=== PATIENT | male | born 1955 | race African-American/Black ===

== ENCOUNTER 2016-05-04 21:53 | Emergency (ER) | payer OTHER ==
[~2016-05-04] VITALS: Ht 170.2 cm; Wt 81.6 kg
[~2016-05-04 21:53] MED LIST: AMLO10TA4 PO; BENZ1TAB7 PO; CLON0.1T PO; ENOX80DI SQ; HYDR-3326 PO; METF500T4 PO; PARO20TA51 PO; QUET25TA PO; TRAM50TA2 PO; WARF5TAB77 PO
[2016-05-04 23:08] LABS: ANION GAP 9 (5-14); CALCIUM, SERUM 9.6 mg/dL (8.5-10.1); CARBON DIOXIDE 34 mmol/L (21-32); CHLORIDE 97 mmol/L (98-107); GFR 92 mL/min (>60); GLUCOSE 293 mg/dL (74-106); POTASSIUM 4.7 mmol/L (3.5-5.1); SODIUM SERUM 135 mmol/L (136-145); UREA NITROGEN, BLOOD 12 mg/dL (7-18)
[2016-05-04 23:08] LABS: CANNABINOID, URINE NEGATIVE (NEGATIVE); PHENCYCLIDINE SCREEN,URINE NEGATIVE (NEGATIVE)
[2016-05-04 23:09] LABS: BASOPHILS # (AUTO) 0.1 /CMM (0.0-0.2); BASOPHILS % (AUTO) 0.5 % (0.0-2.0); DIFF TOTAL % 100 %; EOSINOPHILS # (AUTO) 0.2 /CMM (0.0-0.7); EOSINOPHILS % (AUTO) 1.6 % (0.0-6.0); HEMATOCRIT 42 % (39-51); HEMOGLOBIN 13.4 g/dL (13.5-17.5); LYMPHOCYTES # (AUTO) 3.5 /CMM (0.8-4.8); LYMPHOCYTES % (AUTO) 27.8 % (20.0-44.0); MEAN CORPUSCULAR HEMOGLOBIN 27 PG (26.0-33.0); MEAN CORPUSCULAR HGB CONC 32 g/dl (31.0-36.0); MEAN CORPUSCULAR VOLUME 84 fL (80-96); MONOCYTES # (AUTO) 0.7 /CMM (0.1-1.30); MONOCYTES % (AUTO) 5.6 % (2.0-12.0); NEUTROPHILS # (AUTO) 8.1 /CMM (1.8-8.9); NEUTROPHILS % (AUTO) 64.5 % (43.0-81.0); PLATELET COUNT (AUTO) 275 /CMM (150-450); RED BLOOD CELL COUNT(AUTO) 4.97 MIL/uL (4.5-6.0); WHITE BLOOD COUNT (AUTO) 12.5 K/uL (4.3-11.0)
[2016-05-04 23:16] LABS: ACETAMINOPHEN 0 ug/ml (10-30); ALANINE AMINOTRANSFERASE 22 U/L (12-78); ALBUMIN 4.3 g/dL (3.4-5.0); ASPARTATE AMINOTRANSFERASE 14 U/L (15-37); BILIRUBIN,DIRECT 0.1 mg/dL (0.0-0.2); BILIRUBIN,TOTAL 0.3 mg/dL (0.2-1.0); INDIRECT BILIRUBIN 0.2 mg/dL (0.0-1.1); SALICYLATE 3.8 mg/dL (2.8-20.0); TOTAL PROTEIN, SERUM 8.2 g/dL (6.4-8.2)
[2016-05-05 01:02] VITALS: BP 141/80
== END 2016-05-05 01:04 | disposition home or self-care (01) ==
LOC: ER 21:57
DX: F32.9 Major depressive disorder, single episode, unspecified (principal); F20.9 Schizophrenia, unspecified; G89.29 Other chronic pain; R44.0 Auditory hallucinations; I10 Essential (primary) hypertension; E11.9 Type 2 diabetes mellitus without complications; F31.9 Bipolar disorder, unspecified; I82.409 Acute embolism and thrombosis of unspecified deep veins of unspecified lower extremity; F17.200 Nicotine dependence, unspecified, uncomplicated; Z88.8 Allergy status to other drugs, medicaments and biological substances; Z79.01 Long term (current) use of anticoagulants
CPT/HCPCS: 36415; 80048; 80076; 80305; 85025; 99284; A4606; G0480; G0481; G0482; Z7610; G6038-TC; G6039-TC; G6040-TC

== ENCOUNTER 2016-05-13 19:20 | Emergency (ER) | payer OTHER ==
[~2016-05-13] VITALS: Ht 170.2 cm; Wt 83.9 kg
[2016-05-13 21:28] LABS: BASOPHILS # (AUTO) 0.1 /CMM (0.0-0.2); BASOPHILS % (AUTO) 0.7 % (0.0-2.0); DIFF TOTAL % 100 %; EOSINOPHILS # (AUTO) 0.3 /CMM (0.0-0.7); EOSINOPHILS % (AUTO) 2.9 % (0.0-6.0); HEMATOCRIT 38 % (39-51); HEMOGLOBIN 12.5 g/dL (13.5-17.5); LYMPHOCYTES # (AUTO) 3.7 /CMM (0.8-4.8); MEAN CORPUSCULAR HEMOGLOBIN 27 PG (26.0-33.0); MEAN CORPUSCULAR HGB CONC 33 g/dl (31.0-36.0); MEAN CORPUSCULAR VOLUME 82 fL (80-96); MONOCYTES # (AUTO) 0.6 /CMM (0.1-1.30); MONOCYTES % (AUTO) 6.5 % (2.0-12.0); NEUTROPHILS # (AUTO) 4.4 /CMM (1.8-8.9); NEUTROPHILS % (AUTO) 49.9 % (43.0-81.0); PLATELET COUNT (AUTO) 243 /CMM (150-450); RED BLOOD CELL COUNT(AUTO) 4.57 MIL/uL (4.5-6.0); WHITE BLOOD COUNT (AUTO) 9.1 K/uL (4.3-11.0)
[2016-05-13 21:37] LABS: ADD UA MICROSCOPIC NO; KETONES,URINE Negative (NEGATIVE); LEUKOCYTE ESTERASE ,URINE Negative (NEGATIVE); PH,URINE 5.5 (5.0-8.0)
[2016-05-13 21:43] LABS: ANION GAP 10 (5-14); CALCIUM, SERUM 8.8 mg/dL (8.5-10.1); CARBON DIOXIDE 30 mmol/L (21-32); CHLORIDE 102 mmol/L (98-107); CREATININE 0.9 mg/dL (0.6-1.3); GFR 104 mL/min (>60); GLUCOSE 331 mg/dL (74-106); POTASSIUM 3.9 mmol/L (3.5-5.1); SODIUM SERUM 138 mmol/L (136-145); UREA NITROGEN, BLOOD 13 mg/dL (7-18)
[2016-05-13 21:46] LABS: CANNABINOID, URINE NEGATIVE (NEGATIVE); PHENCYCLIDINE SCREEN,URINE NEGATIVE (NEGATIVE)
[2016-05-13 21:49] LABS: ALANINE AMINOTRANSFERASE 28 U/L (12-78); ALBUMIN 3.7 g/dL (3.4-5.0); ASPARTATE AMINOTRANSFERASE 16 U/L (15-37); BILIRUBIN,TOTAL 0.2 mg/dL (0.2-1.0); SALICYLATE 3.7 mg/dL (2.8-20.0); TOTAL PROTEIN, SERUM 7.2 g/dL (6.4-8.2)
[2016-05-13] MEDS ORDERED: KETOROLAC TROMETHAMINE INJ 60 MG/2 ML VIAL IM ONE (22:00)
[2016-05-13 22:14] LABS: INDIRECT BILIRUBIN 0.2 mg/dL (0.0-1.1)
[2016-05-13 22:15] LABS: ACETAMINOPHEN 0 ug/ml (10-30)
[2016-05-13] MEDS ORDERED: KETOROLAC TROMETHAMINE INJ 30 MG/ML VIAL ONE (22:24)
[2016-05-13] MEDS ORDERED: INSULIN REGULAR, HUMAN 100 UNIT/ML 10 ML VIAL ONE (22:54)
[2016-05-13] MEDS ORDERED: IV NS 0.9% 1,000 ML ONE (22:56)
[2016-05-13] MEDS ORDERED: IV SET PRIMARY 1 EA INFUS.SET MC ONE (22:56)
[2016-05-13] MEDS ORDERED: INSULIN REGULAR, HUMAN 100 UNIT/ML 10 ML VIAL SQ ONE (23:00)
[2016-05-13] MEDS ORDERED: IV NS 0.9% 1,000 ML BAG IV ONE (23:00)
[2016-05-14 02:54] VITALS: BP 124/74
== END 2016-05-14 02:55 | disposition home or self-care (01) ==
LOC: ER 19:25
DX: F32.9 Major depressive disorder, single episode, unspecified (principal); R51 Headache; F31.9 Bipolar disorder, unspecified; E11.9 Type 2 diabetes mellitus without complications; F20.9 Schizophrenia, unspecified; Z79.01 Long term (current) use of anticoagulants; Z79.4 Long term (current) use of insulin; Z88.8 Allergy status to other drugs, medicaments and biological substances; Z91.013 Allergy to seafood
CPT/HCPCS: 36415; 80048-TC; 80076-TC; 80305; 81000-TC; 85025-TC; A4606; G6038-TC; G6039-TC; G6040-TC; J1815; J1885; J7030; Z7610

== ENCOUNTER 2016-07-21 10:39 | Emergency (ER) | payer OTHER ==
[~2016-07-21] VITALS: Ht 170.2 cm; Wt 81.2 kg
[2016-07-21 11:52] LABS: BASOPHILS % (AUTO) 0.6 % (0.0-2.0); EOSINOPHILS # (AUTO) 0.1 /CMM (0.0-0.7); EOSINOPHILS % (AUTO) 1.5 % (0.0-6.0); HEMATOCRIT 39 % (39-51); HEMOGLOBIN 12.9 g/dL (13.5-17.5); LYMPHOCYTES # (AUTO) 2.3 /CMM (0.8-4.8); LYMPHOCYTES % (AUTO) 34.8 % (20.0-44.0); MEAN CORPUSCULAR HEMOGLOBIN 28 PG (26.0-33.0); MEAN CORPUSCULAR HGB CONC 33 g/dl (31.0-36.0); MEAN CORPUSCULAR VOLUME 84 fL (80-96); MONOCYTES # (AUTO) 0.4 /CMM (0.1-1.30); MONOCYTES % (AUTO) 5.9 % (2.0-12.0); NEUTROPHILS # (AUTO) 3.7 /CMM (1.8-8.9); NEUTROPHILS % (AUTO) 57.2 % (43.0-81.0); PLATELET COUNT (AUTO) 200 /CMM (150-450); RDW COEFFICIENT OF VARIATION 13.6 (11.5-15.0); RED BLOOD CELL COUNT(AUTO) 4.64 MIL/uL (4.5-6.0); WHITE BLOOD COUNT (AUTO) 6.5 K/uL (4.3-11.0)
[2016-07-21] MEDS ORDERED: INSULIN REGULAR, HUMAN 100 UNIT/ML 10 ML VIAL SQ ONE (12:00)
[2016-07-21] MEDS ORDERED: IV NS 0.9% 1,000 ML BAG IV ONE ×2 (12:00)
[2016-07-21 12:07] LABS: ALBUMIN 3.4 g/dL (3.4-5.0); BILIRUBIN,DIRECT 0.1 mg/dL (0.0-0.2); BILIRUBIN,TOTAL 0.6 mg/dL (0.2-1.0); CALCIUM, SERUM 8.5 mg/dL (8.5-10.1); CREATININE 1.1 mg/dL (0.6-1.3); POTASSIUM 4.3 mmol/L (3.5-5.1); TOTAL PROTEIN, SERUM 6.6 g/dL (6.4-8.2)
[2016-07-21] MEDS ORDERED: IV NS 0.9% 2,000 ML ONE (12:07)
[2016-07-21] MEDS ORDERED: IV SET PRIMARY 1 EA INFUS.SET MC ONE (12:07)
[2016-07-21] MEDS ORDERED: INSULIN REGULAR, HUMAN 100 UNIT/ML 10 ML VIAL ONE (12:08)
[2016-07-21 12:13] LABS: APPEARANCE,URINE Clear (CLEAR); BILIRUBIN,URINE Negative (NEGATIVE); BLOOD, URINE Negative Ery/uL (NEGATIVE); COLOR,URINE Yellow (YELLOW); KETONES,URINE Trace (NEGATIVE); LEUKOCYTE ESTERASE ,URINE Negative (NEGATIVE); NITRITE, URINE Negative (NEGATIVE); PH,URINE 5.5 (5.0-8.0); PROTEIN,URINE Negative (NEGATIVE); UGLUCOSE >=1000 mg/dL (NEGATIVE)
[2016-07-21 12:19] LABS: ADD URINE CULTURE NO; BACTERIA,URINE None seen /HPF (None Seen); RBC,URINE 0-2 /HPF (0-2); SQUAMOUS EPITHELIAL CELL,UR Few /HPF (None Seen); WBC,URINE 0-2 /HPF (0-3)
--- NOTE | 2016-07-21 12:35 | NUR ---
Pt BIB self c/o runny nose x4 days "but nothing comes out when I blow my nose" and asking for medication refill. States he ran out of novalog and long acting insulin and has not taken either for 2 days. Upon interview and assessment, pt reports he has dry mouth, polydipsia, polyuria, and tingling in hands. A/Ox4. +nausea, -vomiting/diarrhea. Resp even unlabored. Skin warm nondiaphoretic. No visual changes. Addendum: 07/21/16 at 1239 by HFOX Pt in ER bed 10 on monitor.
--- NOTE | 2016-07-21 13:39 | NUR ---
resting comfortably in bed, VSS. NAD noted. BGL [id number]. Provided with sandwich per pt request.
--- NOTE | 2016-07-21 14:07 | NUR ---
Patient discharged to home in stable condition. Written and verbal after care instructions given. Patient verbalizes understanding of instruction. IV removed. Catheter intact and site benign. Pressure and 4x4 applied to site. No bleeding noted. AMBULATORY WITH STEADY GAIT.
[2016-07-21 14:08] VITALS: BP 120/70
== END 2016-07-21 14:08 | disposition home or self-care (01) ==
LOC: ER 10:42
DX: E10.65 Type 1 diabetes mellitus with hyperglycemia (principal); E86.0 Dehydration; F19.10 Other psychoactive substance abuse, uncomplicated; F20.9 Schizophrenia, unspecified; Z88.8 Allergy status to other drugs, medicaments and biological substances; F17.200 Nicotine dependence, unspecified, uncomplicated; Z86.718 Personal history of other venous thrombosis and embolism; Z79.4 Long term (current) use of insulin; Z79.01 Long term (current) use of anticoagulants
CPT/HCPCS: 36415; 80048-TC; 80076-TC; 81000-TC; 82962-TC; 85025-TC; A4606; J1815; J7030; Z7610

== ENCOUNTER 2016-08-25 18:40 | Emergency (ER) | payer OTHER ==
[~2016-08-25] VITALS: Ht 170.2 cm; Wt 81.6 kg
[2016-08-25 18:46] VITALS: BP 142/73
--- NOTE | 2016-08-25 19:30 | NUR ---
CALLED FOR ROOM ASSIGNMENT; NOT IN LOBBY
--- NOTE | 2016-08-25 20:15 | NUR ---
CALLED AGAIN; NO ANSWER
--- NOTE | 2016-08-25 21:27 | NUR ---
STILL NOT IN LOBBY
--- NOTE | 2016-08-25 21:39 | NUR ---
CALLED ONE MORE TIME; NOT IN LOBBY
== END 2016-08-25 21:41 | disposition left against medical advice (07) ==
LOC: ER 18:42
DX: Z53.21 Procedure and treatment not carried out due to patient leaving prior to being seen by health care provider (principal)
CPT/HCPCS: A4606; Z7610

== ENCOUNTER 2016-09-06 22:48 | Emergency (ER) | payer OTHER ==
[~2016-09-06] VITALS: Ht 170.2 cm; Wt 81.6 kg
[2016-09-06 23:01] VITALS: BP 160/90
[2016-09-07] MEDS ORDERED: IBUPROFEN 400 MG TABLET ONE (05:13)
[2016-09-07] MEDS ORDERED: ACETAMINOPHEN ES 500 MG TABLET ONE (05:14)
[2016-09-07] MEDS ORDERED: ACETAMINOPHEN 325 MG TABLET PO ONE (05:30)
[2016-09-07] MEDS ORDERED: IBUPROFEN 400 MG TABLET PO ONE (05:30)
== END 2016-09-07 05:40 | disposition home or self-care (01) ==
LOC: ER 22:49
DX: M54.5 Low back pain (principal); G89.29 Other chronic pain; E11.9 Type 2 diabetes mellitus without complications; F20.9 Schizophrenia, unspecified; Z79.01 Long term (current) use of anticoagulants; Z88.8 Allergy status to other drugs, medicaments and biological substances; F17.200 Nicotine dependence, unspecified, uncomplicated
CPT/HCPCS: 99283; A4606; Z7610

== ENCOUNTER 2016-10-24 15:05 | Emergency (ER) | payer OTHER ==
[~2016-10-24] VITALS: Ht 170.2 cm; Wt 81.6 kg
[2016-10-24 15:14] VITALS: BP 138/68
[2016-10-24] MEDS ORDERED: ACETAMINOPHEN W/ CODEINE#3 1 EA TABLET PO ONE (15:30)
[2016-10-24] MEDS ORDERED: ACETAMINOPHEN W/ CODEINE#3 1 EA TABLET ONE (15:32)
== END 2016-10-24 15:39 | disposition home or self-care (01) ==
LOC: ER 15:09
DX: M54.5 Low back pain (principal); G89.29 Other chronic pain; E11.9 Type 2 diabetes mellitus without complications; Z79.01 Long term (current) use of anticoagulants; F20.9 Schizophrenia, unspecified; Z88.8 Allergy status to other drugs, medicaments and biological substances
CPT/HCPCS: 99283; A4606; Z7610

== ENCOUNTER 2016-11-24 11:17 | Emergency (ER) | payer OTHER ==
[~2016-11-24] VITALS: Ht 172.7 cm; Wt 81.6 kg
--- NOTE | 2016-11-24 11:30 | NUR ---
PT CAME IN FOR RIGHT LOWER EXTREMITY PAIN, WAS Dx WITH DVT ON 11/21 AT [facility]. ALSO C/O OF [facility] PAIN AND DYSURIA. NAD NOTED. SEEN BY MD FOR EVAL. SAFETY AND COMFORT MEASURES PROVIDED. WILL MONITOR.
--- NOTE | 2016-11-24 11:40 | NUR ---
ACCOUNT EXECUTIVE AT FOR BLOOD DRAW.
[2016-11-24 12:25] LABS: INR 1.01 (0.87-1.13); PROTHROMBIN TIME 10.5 SECS (9.5-12.7)
--- NOTE | 2016-11-24 12:36 | NUR ---
PER PT IS OKAY TO EAT. CALLED FOR FOOD TRAY.
[2016-11-24] MEDS ORDERED: APIXABAN 5 MG TABLET PO STA (12:40)
--- NOTE | 2016-11-24 12:50 | NUR ---
Patient discharged to home in stable condition. Written and verbal after care instructions given. Patient verbalizes understanding of instruction. Pt ambulatory with a steady gait.
[2016-11-24 12:56] VITALS: BP 133/69
== END 2016-11-24 13:00 | disposition home or self-care (01) ==
LOC: ER 11:19
DX: I82.401 Acute embolism and thrombosis of unspecified deep veins of right lower extremity (principal); E11.9 Type 2 diabetes mellitus without complications; G89.29 Other chronic pain; Z59.0 Homelessness; Z79.01 Long term (current) use of anticoagulants; Z88.8 Allergy status to other drugs, medicaments and biological substances; F17.200 Nicotine dependence, unspecified, uncomplicated; F20.9 Schizophrenia, unspecified
CPT/HCPCS: 36415; 85730; 99283; A4606; Z7610

== ENCOUNTER 2017-04-02 09:15 | Emergency (ER) | payer OTHER ==
[~2017-04-02] VITALS: Ht 172.7 cm; Wt 81.6 kg
[2017-04-02] MEDS ORDERED: ERYTHROMYCIN BASE OPHTH 3.5 GM TUBE OP ONE (10:00)
[2017-04-02] MEDS ORDERED: ERYTHROMYCIN BASE OPHTH 3.5 GM TUBE ONE (10:02)
[2017-04-02 10:12] LABS: BASOPHILS # (AUTO) 0.1 /CMM (0.0-0.2); BASOPHILS % (AUTO) 0.8 % (0.0-2.0); EOSINOPHILS # (AUTO) 0.2 /CMM (0.0-0.7); EOSINOPHILS % (AUTO) 1.9 % (0.0-6.0); HEMATOCRIT 43 % (39-51); HEMOGLOBIN 13.7 g/dL (13.5-17.5); LYMPHOCYTES # (AUTO) 1.9 /CMM (0.8-4.8); LYMPHOCYTES % (AUTO) 21.8 % (20.0-44.0); MEAN CORPUSCULAR HEMOGLOBIN 28 PG (26.0-33.0); MEAN CORPUSCULAR HGB CONC 32 g/dl (31.0-36.0); MEAN CORPUSCULAR VOLUME 86 fL (80-96); MONOCYTES # (AUTO) 0.5 /CMM (0.1-1.30); MONOCYTES % (AUTO) 5.3 % (2.0-12.0); NEUTROPHILS # (AUTO) 6.2 /CMM (1.8-8.9); NEUTROPHILS % (AUTO) 70.2 % (43.0-81.0); PLATELET COUNT (AUTO) 275 /CMM (150-450); RDW COEFFICIENT OF VARIATION 13.6 (11.5-15.0); RED BLOOD CELL COUNT(AUTO) 4.96 MIL/uL (4.5-6.0); WHITE BLOOD COUNT (AUTO) 8.8 K/uL (4.3-11.0)
[2017-04-02 10:18] LABS: CALCIUM, SERUM 9.2 mg/dL (8.5-10.1); CARBON DIOXIDE 30 mmol/L (21-32); CHLORIDE 101 mmol/L (98-107); POTASSIUM 4.7 mmol/L (3.5-5.1); SODIUM SERUM 138 mmol/L (136-145)
[2017-04-02 10:19] LABS: INR 0.94 (0.87-1.13); PROTHROMBIN TIME 9.8 SECS (9.5-12.7)
[2017-04-02 10:24] LABS: ALCOHOL, BLOOD < 3 mg/dL (0-0); GLUCOSE 232 mg/dL (74-106); UREA NITROGEN, BLOOD 14 mg/dL (7-18)
[2017-04-02] MEDS ORDERED: APIXABAN 5 MG TABLET PO STA (10:32)
--- NOTE | 2017-04-02 11:05 | NUR ---
ASSUME PT CARE. RESTING IN BED. AWAKE. COOPERATIVE. VERBALLY RESPONSIVE. HERE FOR DEPRESSION/SI. PROVIDED W/ FOOD. WILL CONTINUE TO MONITOR.
--- NOTE | 2017-04-02 12:34 | NUR ---
ANNY RN AT BEDSIDE FOR PSYCH EVAL.
--- NOTE | 2017-04-02 12:48 | NUR ---
CALLED [facility] FOR TRANSPORTATION GOING TO [facility] ETA 60-90MIN
[2017-04-02 14:26] VITALS: BP 165/95
--- NOTE | 2017-04-02 14:32 | NUR ---
PT TRANSFERED TO [facility]. STABLE CONDITION.
== END 2017-04-02 14:40 ==
LOC: ER 09:16
DX: B30.8 Other viral conjunctivitis (principal); F32.9 Major depressive disorder, single episode, unspecified; R45.851 Suicidal ideations; I82.4Z1 Acute embolism and thrombosis of unspecified deep veins of right distal lower extremity; E11.9 Type 2 diabetes mellitus without complications; F17.200 Nicotine dependence, unspecified, uncomplicated; Z79.01 Long term (current) use of anticoagulants; Z88.8 Allergy status to other drugs, medicaments and biological substances; Z79.84 Long term (current) use of oral hypoglycemic drugs
CPT/HCPCS: 36415; 80048; 80305; 85025; 85730; 99285; A4606; G0480; Z7610

== ENCOUNTER 2019-05-27 18:21 | Emergency (ER) | payer OTHER ==
[~2019-05-27] VITALS: Ht 170.2 cm; Wt 73.0 kg
[~2019-05-27 18:21] MED LIST changes: -HYDR-3326 PO; +HYDR-3974 PO; +METF-440 PO; -METF500T4 PO; +PARO-64 PO; -PARO20TA51 PO
--- NOTE | 2019-05-27 18:44 | NUR ---
called for triage not in the waiting room
[2019-05-27 19:55] LABS: APPEARANCE,URINE Clear (CLEAR); BILIRUBIN,URINE SMALL (NEGATIVE); BLOOD, URINE Negative Ery/uL (NEGATIVE); COLOR,URINE Dark (YELLOW); KETONES,URINE 15 (NEGATIVE); LEUKOCYTE ESTERASE ,URINE Negative (NEGATIVE); NITRITE, URINE Negative (NEGATIVE); PROTEIN,URINE 30 mg/dl (NEGATIVE); UGLUCOSE 500 MG/DL mg/dL (NEGATIVE)
--- NOTE | 2019-05-27 19:56 | NUR ---
BIBSELF C/O SI WITH PLAN TO "BURN SELF WITH GASOLINE". ALSO ADMITS +HI, WANTS TO HURT BROTHER AND SISTER. DENIES ANY MEDICAL COMPLAINTS AT THIS TIME. AOX3, AMB, VSS, RR EVEN AND UNLABORED. SKIN WARM, DRY, INTACT. SUICIDE PRECAUTIONS IMPLEMENTED. MADE COMFORTABLE AND READY FOR EVAL.
[2019-05-27 19:57] LABS: BACTERIA,URINE None seen /HPF (None Seen); RBC,URINE 0-2 /HPF (0-2); SQUAMOUS EPITHELIAL CELL,UR Few /HPF (None Seen); WBC,URINE 0-2 /HPF (0-3)
[2019-05-27 20:07] LABS: BASOPHILS % (AUTO) 0.7 % (0.0-2.0); EOSINOPHILS % (AUTO) 0.4 % (0.0-6.0); HEMATOCRIT 39 % (39-51); HEMOGLOBIN 12.8 g/dL (13.5-17.5); LYMPHOCYTES # (AUTO) 1.3 /CMM (0.8-4.8); LYMPHOCYTES % (AUTO) 19.6 % (20.0-44.0); MEAN CORPUSCULAR HGB CONC 33 g/dl (31.0-36.0); MEAN CORPUSCULAR VOLUME 87 fL (80-96); MONOCYTES # (AUTO) 0.8 /CMM (0.1-1.30); MONOCYTES % (AUTO) 11.8 % (2.0-12.0); NEUTROPHILS # (AUTO) 4.5 /CMM (1.8-8.9); NEUTROPHILS % (AUTO) 67.5 % (43.0-81.0); PLATELET COUNT (AUTO) 233 /CMM (150-450); RED BLOOD CELL COUNT(AUTO) 4.54 MIL/uL (4.5-6.0); WHITE BLOOD COUNT (AUTO) 6.7 K/uL (4.3-11.0)
[2019-05-27 20:15] LABS: CALCIUM, SERUM 9.5 mg/dL (8.5-10.1); CARBON DIOXIDE 32 mmol/L (21-32); CHLORIDE 98 mmol/L (98-107); GLUCOSE 226 mg/dL (74-106); POTASSIUM 4.3 mmol/L (3.5-5.1); SODIUM SERUM 137 mmol/L (136-145); UREA NITROGEN, BLOOD 10 mg/dL (7-18)
[2019-05-27 20:21] LABS: ALANINE AMINOTRANSFERASE 19 U/L (12-78); ALCOHOL, BLOOD < 3 mg/dL (0-0); ALKALINE PHOSPHATASE 104 U/L (46-116); ASPARTATE AMINOTRANSFERASE 21 U/L (15-37); BILIRUBIN,DIRECT 0.1 mg/dL (0.0-0.2); BILIRUBIN,TOTAL 0.2 mg/dL (0.2-1.0); SALICYLATE 5.2 mg/dL (2.8-20.0); TOTAL PROTEIN, SERUM 7.8 g/dL (6.4-8.2)
--- NOTE | 2019-05-27 20:38 | NUR ---
CALLED [facility]
--- NOTE | 2019-05-27 21:28 | NUR ---
Patient is resting comfortably in bed with eyes closed. Easily aroused. VSS
--- NOTE | 2019-05-27 23:17 | NUR ---
Patient is resting comfortably in bed with eyes closed. Easily aroused. VSS
--- NOTE | 2019-05-28 07:21 | NUR ---
PT ASLEEP ON BED, EASILY AROUSABLE, AAOX3, NOT IN RESPIRATORY DISTRESS, V/S STABLE, KEPT RESTED AND COMFORTABLE, AWAITING SW FOR EVAL.
--- NOTE | 2019-05-28 07:48 | NUR ---
received a call from [facility] ([facility]) and will transfer clinicals to [place], and will call back for updates.
--- NOTE | 2019-05-28 08:00 | NUR ---
PATIENT GIVEN FOOD TRAY, EATING BREAKFAST.
--- NOTE | 2019-05-28 08:47 | NUR ---
CALLED [facility] FOR TRANSPORT TO [facility]. ETA 1030.
--- NOTE | 2019-05-28 10:00 | NUR ---
PATIENT RESTING. NO DISTRESS NOTED.
--- NOTE | 2019-05-28 10:37 | NUR ---
REPORT GIVEN TO ENRRIQUE MIRELES. PATIENT IN NO DISTRESS AT THIS TIME, VITALS STABLE.
--- NOTE | 2019-05-28 10:45 | NUR ---
CALLED [facility] FOR STATUS OF PT BEING ACCEPTED. UNKNOWN TIME. WILL CALL BACK SOON BED BECOMES AVAILABLE.
--- NOTE | 2019-05-28 13:33 | NUR ---
FOLLOWED UP WITH [facility]. THEY HAVE CLINICALS AND INFO JUST WAITING ON BED ASSIGNMENT. WILL CALL BACK AFTER TALKING WITH CARMEN VILLAGOMEZ.
--- NOTE | 2019-05-28 13:36 | NUR ---
ordered food tray.
--- NOTE | 2019-05-28 13:39 | NUR ---
KALANI FROM [facility] CALLED AND SAID THE PT WAS GOOD TO BE SENT. DR CHUNG IS THE ACCEPTING DOCTOR. NUMBER FOR REPORT [phone] EXT. [phone].
--- NOTE | 2019-05-28 13:43 | NUR ---
AFTAB received a call from ANDERSON at [facility] intake informing PROTEOMICS SCIENTIST pt has been accepted at [place] and [facility] in ED was given acceptance details. PROTEOMICS SCIENTIST informed [facility] in ED.
--- NOTE | 2019-05-28 13:44 | NUR ---
CALLED [facility] FOR TRANSPORT TO [facility]. ETA 30 MINUTES. TRIP NUMBER [id number].
--- NOTE | 2019-05-28 14:34 | NUR ---
REPORT GIVEN TO JAUN NAIDU. VITALS STABLE.
--- NOTE | 2019-05-28 14:50 | NUR ---
REPORT GIVEN TO EMT. PATIENT LEFT IN STABLE CONDITION. TRANSFERRED TO [facility].
[2019-05-28 14:51] VITALS: BP 128/53
== END 2019-05-28 14:51 ==
LOC: ER 18:26
DX: E11.65 Type 2 diabetes mellitus with hyperglycemia (principal); F12.10 Cannabis abuse, uncomplicated; F14.10 Cocaine abuse, uncomplicated; R45.851 Suicidal ideations; F31.9 Bipolar disorder, unspecified; F20.9 Schizophrenia, unspecified; F17.210 Nicotine dependence, cigarettes, uncomplicated; G89.29 Other chronic pain; M54.9 Dorsalgia, unspecified; F10.10 Alcohol abuse, uncomplicated; Y90.0 Blood alcohol level of less than 20 mg/100 ml; Z60.2 Problems related to living alone; Z79.899 Other long term (current) drug therapy; Z79.01 Long term (current) use of anticoagulants; Z88.8 Allergy status to other drugs, medicaments and biological substances
CPT/HCPCS: 36415; 80048; 80076; 80305; 80307; 80329; 81001; 85025; 99285; G0480; 81000-TC